=== PATIENT | female | born 1945 | race Caucasian/White ===

== ENCOUNTER 2021-09-02 14:29 | Emergency (ER) | payer MEDICARE, SELFPAY ==
[2021-09-02] VITALS (27 sets, daily range): BP systolic 124–151; BP diastolic 45–78; PULSE 58–92; RESP 9–18; TEMP 36.8; O2SAT 91–100
--- NOTE | ~2021-09-02 | XR_ITS ---
EXAMINATION: XR chest 2V Exam Date/Time: 09/02/2021 15:08 CDT CLINICAL HISTORY: Syncope, possible aspiration, ON NEB DURING EXAM Comparison: None available. RESULT: Lines, tubes, and devices: Right axillary clips. Lungs and pleura: Clear. Cardiomediastinal silhouette: Unremarkable cardiomediastinal silhouette. Other: No acute osseous or upper abdominal finding. IMPRESSION: No acute cardiopulmonary process Reviewed, dictated and finalized at location K.
--- NOTE | 2021-09-02 14:39 | ECG_ITS ---
Measurements Intervals [place] Rate: 58 P: 65 W[place]: 185 QRS: 48 QRSD: 97 T: 56 QT: 443 QTc: 438 Interpretive Statements SINUS BRADYCARDIA BORDERLINE ECG Electronically Signed On 09-02-2021 14:59:54 CDT by Serafin Fernandez D.O.
[2021-09-02] MEDS: IPRATROPIUM BR 0.02% INH SOLN 0.5 MG/2.5 ML VIAL 1 MG INHALATION (14:54)
[2021-09-02] MEDS: ALBUTEROL SULFATE NEB 2.5 MG/0.5 ML INH 12.5 MG (14:56)
[2021-09-02 15:19] LABS: Basophils Absolute Auto 0.1 K/mm3 (0.0-0.1); Basophils Percent Auto 0.7 % (0.2-1.2); Eosinophils Absolute Auto 0.1 K/mm3 (0-0.3); Eosinophils Percent Auto 1.5 % (0-4.4); Hemoglobin 11.6 g/dL (12.0-15.0); Immature Granulocyte Absolute 0.03 K/mm3 (0.00-0.031); Immature Granulocyte Percent A 0.4 % (0-0.5); Lymphocytes Absolute Auto 1.08 K/mm3 (0.9-3.2); Lymphocytes Percent Auto 15.1 % (18.3-44.2); Mean Corpuscular HGB Conc 32.2 g/dl (32-36); Mean Corpuscular Hemoglobin 32.3 pg (26-34); Mean Corpuscular Volume 100.3 fl (80-100); Mean Platelet Volume 10.1 fl (7.4-10.4); Monocytes Absolute Auto 0.6 K/mm3 (0.1-0.6); Monocytes Percent Auto 7.7 % (2.6-8.5); Neutrophils Absolute Auto 5.4 K/mm3 (1.3-6.7); Neutrophils Percent Auto 74.6 % (45.5-73.1); Platelet Count Result 218 k/mm3 (150-375); Red Blood Count 3.59 M/mm3 (4.2-5.4); Red Cell Distribution Width 15.1 % (11.5-14.5); White Blood Count 7.2 K/mm3 (4.5-10.0)
[2021-09-02 15:24] LABS: Lactic Acid Reflex 1.7 mmol/L (0.7-2.0)
[2021-09-02 15:26] LABS: Alanine Aminotransferase 15 U/L (6-35); Albumin Level 4.2 g/dL (3.5-5.1); Alkaline Phosphatase 70 U/L (38-126); Anion Gap 7 mmol/L (8-16); Aspartate Amino Transferase 24 U/L (14-36); Bilirubin,Total 0.3 mg/dL (0.2-1.3); Blood Urea Nitrogen 31 mg/dL (7-17); Calcium 9.4 mg/dL (8.4-10.2); Carbon Dioxide 25 mmol/L (22-30); Chloride 107 mmol/L (98-107); Estimated CRCL calculation 38 ml/min; Estimated Glomerular Filt Rate 48; Glucose 126 mg/dL (65-110); Potassium 4.1 mmol/L (3.4-5.0); Sodium 139 mmol/L (137-145)
[2021-09-02 15:28] LABS: Magnesium 2.2 mg/dL (1.6-2.3)
[2021-09-02 15:29] LABS: Prothrombin Time 13.2 Seconds (11.1-14.7)
[2021-09-02 15:37] LABS: NT Pro B Type Natriuretic Pept 231 pg/mL (5-100); Troponin I < 0.012 ng/mL (0.000-0.034)
[2021-09-02 15:38] LABS: SARS-CoV-2 RNA PCR Negative
--- NOTE | 2021-09-02 17:20 | ED.GENADULT ---
HPI - General Adult General Chief complaint: Syncope <Jass Cleveland MD - Last Filed: 09/02/21 17:28> Stated complaint: syncope <Jass Cleveland MD - Last Filed: 09/02/21 17:28> History of Present Illness HPI narrative: Patient is a 76-year-old female who presents ER status [place]. Patient reports she has had nothing to eat or drink today. She [place] beer [place] when she began to feel lightheaded. She slumped over in her chair. Her friend who is a nurse was concerned that she was in cardiac arrest and delivered to chest compressions. Patient then woke up. Patient did have emesis. Patient has no reports of pain or dyspnea at this time. She does have some coarse breath sounds reports she is a smoker. She denies any breathing difficulty. She is having some mild discomfort to her chest related to the compressions. Patient did have loss of bladder. Patient's friends also doused her in ice water to get her to wake up. <Jass Cleveland MD - Last Filed: 09/02/21 17:28> Related Data Allergies/adverse reactions: Allergies Allergy/AdvReac Type Severity Reaction Status Date / Time guaifenesin Allergy Unknown Unknown Verified 09/02/21 14:38 DEXTROMETHORPHAN HBR Allergy Unknown Unknown Uncoded 09/02/21 14:38 <Jass Cleveland MD - Last Filed: 09/02/21 17:28> Review of Systems Review of Systems: All systems reviewed & are unremarkable except as noted in HPI and below <Jass Cleveland MD - Last Filed: 09/02/21 17:28> Constitutional: Constitutional: Denies chills, Denies fever(s) and Denies weakness <Jass Cleveland MD - Last Filed: 09/02/21 17:28> ENT: Denies nasal congestion and Denies sore throat <Jass Cleveland MD - Last Filed: 09/02/21 17:28> Cardiovascular: Cardiovascular: Reports chest pain, Denies rapid heart rate and Denies radiating jaw, neck or arm pain <Jass Cleveland MD - Last Filed: 09/02/21 17:28> Respiratory: Respiratory: Denies cough, Denies dyspnea and Reports wheezing <Jass Cleveland MD - Last Filed: 09/02/21:28> Gastrointestinal: Gastrointestinal: Denies abdominal pain, Denies nausea and Reports vomiting <Jass Cleveland MD - Last Filed: 09/02/21:> Neurologic: Reports syncope, Denies focal weakness and Denies numbness <Jass Cleveland MD - Last Filed: 09/02/21:28> PMFSH Past Medical History Medical History: Medical History (Updated 09/02/21 @ 22:04 by Eitan Rosen MD) Breast cancer Hypertension <Jass Cleveland MD - Last Filed: 09/02/21:28> Surgical History Surgical History: Surgical History (Updated 09/02/21 @ 17:25 by Jass Cleveland MD) History of hysterectomy History of mastectomy <Jass Cleveland MD - Last Filed: 09/02/21:> Social History Social History: Social History (Updated 09/02/21 @ 17:25 by Jass Cleveland MD) Alcohol intake: current <Jass Cleveland MD - Last Filed: 09/02/21:28> Exam Narrative: GENERAL: Well-appearing, well-nourished, and in no acute distress. HEAD: Normocephalic, atraumatic. EYES: PERRL and EOMI. ENT: Mucous membranes moist. CHEST: Rhonchi bibasilarly. No respiratory distress. HEART: Regular rate and rhythm. Normal peripheral pulses. ABDOMEN: Soft, nontender, nondistended. EXTREMITIES: Normal range of motion. No edema. SKIN: Warm, moist, no rash. NEURO: Alert and oriented x3. PSYCH: Normal mood and affect. <Jass Cleveland MD - Last Filed: 09/02/21:28> Course Reevaluation(s) Reevaluation #1: Patient care was signed out to me by Dr. Cleveland with a delta troponin pending. Plan at signout was discharged to home pending the repeat troponin. Patient's repeat troponin was within normal limits. Patient was negative for COVID. Patient was able to ambulate in the emergency department without issue. Patient denies any complaints. Patient was discharged
[2021-09-02 19:14] LABS: Troponin I < 0.012 ng/mL (0.000-0.034)
== END 2021-09-02 23:00 | disposition home or self-care (01) ==
PROVIDERS: Emergency Provider Emergency Medicine
DX: R55 Syncope and collapse (principal); Z20.822 Contact with and (suspected) exposure to COVID-19; F17.200 Nicotine dependence, unspecified, uncomplicated; R00.1 Bradycardia, unspecified
CPT/HCPCS: 36415; 71046; 80053; 83605; 83735; 83880; 84484; 85025; 85610; 93005; 94640; 99284; C9803; U0003; U0005